=== PATIENT | male | born 2000 | race Hispanic/Latino ===

== ENCOUNTER 2018-09-03 19:02 | Emergency (ER) | payer OTHER ==
[2018-09-03] MEDS: CIPROFLOXACIN HC OTIC SUSPENSION AD (19:49)
== END 2018-09-03 20:03 | disposition home or self-care (01) ==
LOC: M ED 19:02
DX: H60.91 Unspecified otitis externa, right ear (principal)
CPT/HCPCS: 99282